=== PATIENT | male | born 1975 | race Native Hawaiian/Other Pacific Islander ===

== ENCOUNTER 2017-11-18 07:47 | Outpatient (CLI) | payer BC ==
[~2017-11-18] VITALS: Ht 177.8 cm; Wt 114.3 kg
== END 2017-11-18 22:03 | disposition home or self-care (01) ==
LOC: NM 07:47
DX: R07.89 Other chest pain (principal); R06.02 Shortness of breath; R94.31 Abnormal electrocardiogram [ECG] [EKG]
CPT/HCPCS: A9500; J2785